=== PATIENT | female | born 1965 | race Native Hawaiian/Other Pacific Islander ===

== ENCOUNTER 2020-03-26 17:30 | Emergency (ER) | payer OTHER ==
[~2020-03-26] VITALS: Ht 170.2 cm; Wt 69.4 kg
[2020-03-26 17:30] VITALS: BP 122/87; TEMP 98.5
[2020-03-26 18:04] LABS: PLATELET COUNT 349 K/uL (152-353)
[2020-03-26 18:13] LABS: POTASSIUM 3.9 mmol/L (3.6-5.2)
[2020-03-26] MEDS ORDERED: AMOX875T8 PO (19:37)
[2020-03-26] MEDS ORDERED: ARIPIPRAZOLE OD10 MG PO (19:38)
[2020-03-26] MEDS ORDERED: BENZ1TAB43 PO (19:39)
[2020-03-26] MEDS ORDERED: BETHANECHOL PO ×2 (19:40→19:41)
[2020-03-26] MEDS ORDERED: WELLBUTRIN150 MG PO ×2 (19:41→19:43)
[2020-03-26] MEDS ORDERED: BUSPIRONE10 MG PO (19:44)
[2020-03-26] MEDS ORDERED: POLYETHYLE17 GM/SCO1 PO (19:45)
[2020-03-26] MEDS ORDERED: CLON0.5T36 PO (19:45)
[2020-03-26] MEDS ORDERED: CLON1TAB18 PO (19:46)
[2020-03-26] MEDS ORDERED: CLONIDINE HYDR0.2 MG PO (19:47)
[2020-03-26] MEDS ORDERED: HALO50IN4 IM (19:48)
[2020-03-26] MEDS ORDERED: B-12 COMPL1000 MCG/M IM (19:50)
[2020-03-26] MEDS ORDERED: MULTIVITAMIN AD1 TA2 PO (19:52)
[2020-03-26] MEDS ORDERED: LEVO-T25 MCG PO (19:52)
[2020-03-26] MEDS ORDERED: QUET100T2 PO (19:53)
[2020-03-26] MEDS ORDERED: CEFT1INJ27 INJ (19:54)
[2020-03-26] MEDS ORDERED: TRAZODONE HYDR150 MG PO (19:56)
[2020-03-26] MEDS ORDERED: THERMOTABS PO (19:56)
== END 2020-03-26 18:45 | disposition other institution (70) ==
LOC: ED 17:38
PROVIDERS: Family Medicine
DX: F31.89 Other bipolar disorder (principal); F22 Delusional disorders; Z11.59 Encounter for screening for other viral diseases; Z04.6 Encounter for general psychiatric examination, requested by authority
CPT/HCPCS: 80053; 85027; 87635; 93005; 99283; U0003